=== PATIENT | female | born 2000 | race Caucasian/White ===

== ENCOUNTER → 2020-05-09 15:16 | Outpatient (BNVA) | payer OTHER, SELFPAY | PROVIDERS: Visit Provider Nurse Practitioner Family | DX: Z20.828 Contact with and (suspected) exposure to other viral communicable diseases (principal); J06.9 Acute upper respiratory infection, unspecified | CPT/HCPCS: 87635 ==

== ENCOUNTER → 2021-09-28 15:42 | Outpatient (BNVA) | payer SELFPAY | PROVIDERS: PCP Family Medicine Adult Medicine; Visit Provider Nurse Practitioner Family | DX: N91.2 Amenorrhea, unspecified (principal); G43.909 Migraine, unspecified, not intractable, without status migrainosus | CPT/HCPCS: 81025 ==

== ENCOUNTER 2023-05-06 16:02 | Outpatient (CLI) | payer OTHER, SELFPAY ==
--- NOTE | 2023-05-06 16:22 | XR_ITS ---
WS: [id number] LEFT FOOT: 3 VIEW(S) TECHNIQUE: AP, oblique and lateral. HISTORY: Bi-lateral foot pain COMPARISON: None available. No acute fracture or dislocation. Normal tarsometatarsal alignment. Hammertoe deformities, third through fifth. No soft tissue abnormality or bone destruction. IMPRESSION: Hammertoe deformities, third through fifth toes. Otherwise negative.
--- NOTE | 2023-05-06 16:22 | XR_ITS ---
WS: [id number] RIGHT FOOT: 3 VIEW(S) TECHNIQUE: AP, oblique and lateral. HISTORY: Bi-lateral foot pain COMPARISON: None available. No acute fracture or dislocation. Mild hammertoe deformity third through fifth phalanges. No soft tissue abnormality or bone destruction. IMPRESSION: Hammertoe deformities third through fifth phalanges. Otherwise negative.
== END 2023-05-06 16:03 | disposition home or self-care (01) ==
LOC: RAD 16:05
PROVIDERS: PCP Family Medicine Adult Medicine; Visit Provider Nurse Practitioner Family
DX: M79.671 Pain in right foot (principal); M79.672 Pain in left foot; M20.42 Other hammer toe(s) (acquired), left foot; M20.41 Other hammer toe(s) (acquired), right foot
CPT/HCPCS: 73630

== ENCOUNTER 2023-08-09 18:45 | Emergency (ER) | payer SELFPAY ==
--- NOTE | 2023-08-09 18:47 | XRR_ITS ---
PROCEDURE INFORMATION: Exam: XR Left Wrist Exam date and time: 08/09/2023 7:15 PM Age: 23 years old Clinical indication: Left; Patient HX: Patient has swelling and redness to left wrist from unknown insect bite. ; Additional info: Injury TECHNIQUE: Imaging protocol: Radiologic exam of the left wrist. Views: 3 or more views. COMPARISON: No relevant prior studies available. FINDINGS: Bones/joints: No fractures or dislocations noted. Soft tissues: Mild soft tissue swelling in the dorsum of the hand. No radiopaque foreign body. No subcutaneous gas noted. XR/XR wrist LT min 3V* [id number] IMPRESSION: 1. Soft tissue swelling in the dorsum of the hand with no fractures or dislocations. 2. There is no subcutaneous gas noted.
[2023-08-09 19:03] VITALS: BP 172/88; PULSE 75; RESP 18; TEMP 36.6; O2SAT 100; BMI 48.6
--- NOTE | 2023-08-09 19:45 | ED_ITS ---
HPI - Skin/Abscess/Foreign Bdy General: Chief complaint: Skin/Abscess/Foreign Body Stated complaint: Left wrist pain Time Seen by Provider: 08/09/23 19:41 Source: patient Mode of arrival: ambulatory Limitations: no limitations History of Present Illness: 23-year-old female states that she did [place] and developed a rash to her left wrist has been pruritic in nature states has had some redness over the last day denies any fevers she denies any worsening proving factors. No drainage. Associated symptoms: Deny chills, fever(s), nausea or vomiting Review of Systems Const: Denies: fever(s), chills, body aches or change in appetite ENMT: Denies: throat pain or dental pain Card: Denies: chest pain Resp: Denies: dyspnea GI: Denies: abdominal pain, nausea, vomiting or diarrhea Musc: Denies: neck pain or back pain Skin/Breast: Reports: rash Neuro: Denies: headache(s) PFSH ED PFSH: Social History Smoking and tobacco/nicotine status: never used tobacco/nicotine Alcohol intake: current Alcohol intake frequency: holidays/special occasions on ly Substance/Drug Use: never Physical Exam Const: COMMON NORMALS: no acute distress, patient oriented x3 and healthy appearing HENMT: COMMON NORMALS: normocephalic and atraumatic HEAD & SCALP: normocephalic and atraumatic Neck/C-Spine: COMMON NORMALS: full ROM and supple Chest: COMMONS NORMALS: normal inspection of the chest Resp: COMMON NORMALS: normal respiratory effort Cardio: COMMON NORMALS: regular rate, regular rhythm and No murmurs present (Cardio) RATE: regular rate RHYTHM: regular rhythm Extremity: COMMON NORMALS: full ROM OTHER: Slight erythema to the left wrist no abscess formation Neuro: COMMON NORMALS: patient oriented x3, moves all extremities and no focal motor deficits Psych: COMMON NORMALS: mental status grossly normal, Normal thought process present and cooperative THOUGHT PROCESS: Normal thought process present Course Vital Signs: Vital signs: Vital Signs Temperature 97.9 F 08/09/23 19:03 Pulse Rate 75 08/09/23 19:03 Respiratory Rate 18 08/09/23 19:03 Blood Pressure 172/88 08/09/23 19:03 Pulse Oximetry 100 08/09/23 19:03 Oxygen Delivery Me thod Room Air 08/09/23 19:03 MDM - Skin/Abscess/Foreign Bdy Medicial Decision Making Patient presents here with likely insect bite to left wrist may be a mild cellulitis no abscess formation we will start her on Keflex she is follow-up with her PCP and return if worsening she understands agrees to plan Medical Records I reviewed the patient's medical records. All radiology interpretation(s) finalized by discharge Discharge Plan Discharge Patient Disposition: Home Clinical Impression: Cellulitis Condition: Stable Prescriptions: New cephalexin 500 mg capsule 500 mg PO TID 7 Days Qty: 21 0RF No Action naproxen 250 mg tablet 500 mg PO BID PRN (Reason: pain) Qty: 30 0RF Rx Instructions: Take 2 tablets at onset of headache may take 1 tablet if needed in 6 hours. Discharge Orders: Discharge ED (Routine); Ordered 08/09/23 Ordered By: Nuzhat Grant Referrals: Roger Romeo MD [Primary Care Provider] - 4-7 days Discharge Diet: Advance as tolerated Discharge Activity: Resume usual activity Patient Instructions: Cellulitis (ED) Coding Level of Care Code ED Php Website Developer for Marilyn Farmer
[2023-08-09] MEDS: cephALEXin 500 mg Capsule PO (19:52)
[2023-08-09 19:53] VITALS: BP 169/96; PULSE 69; RESP 16; O2SAT 100
== END 2023-08-09 19:56 | disposition home or self-care (01) ==
PROVIDERS: Emergency Provider Emergency Medicine; PCP Family Medicine Adult Medicine
DX: L03.114 Cellulitis of left upper limb (principal)
CPT/HCPCS: 73110; 99283